=== PATIENT | female | born 1990 | race Caucasian/White ===

== ENCOUNTER 2019-12-25 20:00 | Emergency (ER) | payer OTHER ==
[~2019-12-25] VITALS: Ht 165.1 cm; Wt 93.9 kg
[2019-12-25 20:08] VITALS: BP 131/77
--- NOTE | 2019-12-25 20:32 | NUR ---
PT AMBULATED TO ER BED 5
[2019-12-25] MEDS ORDERED: DEXAMETHASONE 10 MG/ML VIAL IVP ONE (20:35)
[2019-12-25] MEDS ORDERED: NACL 0.9% 1,000 ML IV ONE (20:35)
[2019-12-25] MEDS ORDERED: KETOROLAC 15 MG/ML VIAL IVP ONE (20:35)
--- NOTE | 2019-12-25 20:35 | NUR ---
PT 29 Y/O FEMALE BIB SELF FOR C/O SORE THROAT X 3 DAYS W/ N/V. PAIN IN THROAT 03/13. PT STATES SHE HAS NOT BEEN ABLE TO EAT WEL X 3 DAYS AND HAS DIFFICULTY SWALLOWING D/T PAIN. ABD IS ROUND, SOFT, AND NON TENDER. VSS. RESPIRATIONS ARE EVEN AND UNLABROED. SKIN IS WARM AND DRY TO TOUCH. BED LOCKED AND IN LOWEST POSITION. MEDHX: ASTHMA ALLERGIES: PCN
--- NOTE | 2019-12-25 20:40 | NUR ---
PA [facility] BEDSIDE EVALUATING PT
[2019-12-25] MEDS ORDERED: CLINDAMYCIN 600 MG in DEXTROSE 5% 50 ML IV ONE (20:45)
--- NOTE | 2019-12-25 20:55 | NUR ---
PT IV PLACED IN L HAND 24G. IV SITE IS PATENT. NO REDNESS, SWELLING, OR C/O PAIN AT THIS TIME.
[2019-12-25] MEDS ORDERED: CLINDAMYCIN 600 MG/4 ML VIAL ONE (21:03)
--- NOTE | 2019-12-25 21:10 | NUR ---
UA COLLECTED. THROAT CULTURE SWAB COLLECTED AT BEDSIDE.
--- NOTE | 2019-12-25 21:36 | NUR ---
VIOLET CHAN AT BEDSIDE.
--- NOTE | 2019-12-25 22:10 | NUR ---
PT STATES SHE NO LONGER IS FEELING NAUSEA. RESPIRATIONS ARE EVEN AND UNALBORED. SKIN IS WARM AND DRY TO TOUCH. IV SITE IS PATENT. NO C/O PAIN, REDNESS, OR SWELLING NOTED.
[2019-12-25 22:50] VITALS: BP 120/60
--- NOTE | 2019-12-25 22:51 | NUR ---
IV removed, catheter intact and site benign. Applied folded 4x4 gauze and tape to stop bleeding.
--- NOTE | 2019-12-25 22:51 | NUR ---
Patient discharged with v/s stable. Written and verbal after care instructions given and explained. Patient alert, oriented and verbalized understanding of instructions. Ambulatory with steady gait. All questions addressed prior to discharge. ID band removed. Patient advised to follow up with PMD. Rx of cepacol, ibuprofen, clindamycin, zofran odt given. Patient educated on indication of medication including possible reaction and side effects. Opportunity to ask questions provided and answered.
== END 2019-12-25 22:51 | disposition home or self-care (01) ==
LOC: MED 20:00
DX: J02.9 Acute pharyngitis, unspecified (principal); E86.0 Dehydration; J45.909 Unspecified asthma, uncomplicated; Z88.0 Allergy status to penicillin
CPT/HCPCS: 81002; 81025; 87081; 96365; 96375; 99284; J1100; J1885; J3490; J7030

== ENCOUNTER 2019-12-31 17:30 | Emergency (ER) | payer OTHER ==
[~2019-12-31] VITALS: Ht 165.1 cm; Wt 94.8 kg
[2019-12-31 17:34] VITALS: BP 123/80
--- NOTE | 2019-12-31 17:40 | NUR ---
PT AMBULATED TO BED 12, STEADY GAIT.
--- NOTE | 2019-12-31 17:51 | NUR ---
29 Y/F PRESENTS TO ED WITH C/O EPIGASTRIC PAIN / "GURGLING" PAIN, WITH N/V/D FOR 3 DAYS S/P TAKING CLINDAMYCIN FOR 3 DAYS. PT STOPPED TAKING CLINDAMYCIN ON FRIDAY. PT REPORTS LOSS OF APPETITE, AND REPORTS SLIGHT RELIEF AFTER TAKING ZOFRAN AT HOME. PT WAS SEEN IN OUR ER ON 12/26/2019 AND DX WITH PHARYNGITIS. PT DENIES SORE THROAT, SOB, CP, COUGH, FEVER, RECENT TRAVEL, OR SICK CONTACTS. PT DENIES DYSURIA OR HEMATURIA. RR EVEN AND UNLABORED. VSS. PMH: DENIES MEDS: CONTROL, ZOFRAN AND ALLERGY PILLS
--- NOTE | 2019-12-31 18:00 | NUR ---
DUSTIN LAZO AT BEDSIDE.
[2019-12-31] MEDS ORDERED: DICYCLOMINE HCL LIQUID 20 MG, ALUMINUM HYD/MAG/SIMETHICONE 30 ML, LIDOCAINE VISCOUS 2% ... PO ONE ×3 (18:05)
[2019-12-31] MEDS ORDERED: ONDANSETRON 4 MG ODT PO ONE (18:05)
[2019-12-31] MEDS ORDERED: DICYCLOMINE HCL LIQUID 10 MG/5 ML UDC ONE (18:06)
[2019-12-31] MEDS ORDERED: LIDOCAINE VISCOUS 2% 20 ML UDC ONE (18:06)
[2019-12-31] MEDS ORDERED: ALUMINUM HYD/MAG/SIMETHICONE 30 ML UDC ONE (18:06)
[2019-12-31 19:03] VITALS: BP 123/80
--- NOTE | 2019-12-31 19:04 | NUR ---
Patient discharged with v/s stable. Written and verbal after care instructions given and explained. Patient alert, oriented and verbalized understanding of instructions. Ambulatory with steady gait. All questions addressed prior to discharge. ID band removed. Patient advised to follow up with PMD. Rx of MACROBID, BENTYL, ZOFRAN AND REGLAN given. Patient educated on indication of medication including possible reaction and side effects. Opportunity to ask questions provided and answered.
== END 2019-12-31 19:04 | disposition home or self-care (01) ==
LOC: MED 17:30
DX: R10.13 Epigastric pain (principal); N39.0 Urinary tract infection, site not specified; R11.2 Nausea with vomiting, unspecified; R19.7 Diarrhea, unspecified; J45.909 Unspecified asthma, uncomplicated; Z88.0 Allergy status to penicillin
CPT/HCPCS: 81002; 81025; 87086; 99283; Q0162

== ENCOUNTER 2020-01-16 09:48 | Emergency (ER) | payer OTHER ==
[~2020-01-16] VITALS: Ht 165.1 cm; Wt 93.4 kg
[2020-01-16 09:59] VITALS: BP 144/88
--- NOTE | 2020-01-16 10:00 | NUR ---
PT AMBULATED TO ER BED 11
--- NOTE | 2020-01-16 10:05 | NUR ---
29 Y/O FEMALE BIB SELF C/O SORE THROAT SINCE YESTERDAY MORNING. PT DENIES ANY FEVERS/CHILLS/COUGH. STATES SHE HAS HAS ON/OFF EPISODES OF TONSILLITIS/ STREP THROAT FOR THE PAST FEW MONTHS. SHE STATES IT IS VERY PAINFUL TO SWALLOW, WHICH IS PREVENTING HER FROM EATING/DRINKING. TONSILS ARE INFLAMED AND ERYTHEMATOUS. RESP EVEN AND UNLABORED. LUNG SOUNDS CLEAR IN BILAT LOBES. ALLERGIES: PENECILLIN, CLINDAMYCIN
[2020-01-16] MEDS ORDERED: KETOROLAC 30 MG/ML VIAL IM ONE (10:15)
[2020-01-16] MEDS ORDERED: DEXAMETHASONE 4 MG/ML VIAL PO ONE (10:15)
[2020-01-16] MEDS ORDERED: LIDOCAINE VISCOUS 2% 20 ML UDC PO ONE (10:15)
[2020-01-16] MEDS ORDERED: ONDANSETRON 4 MG ODT PO ONE (10:15)
[2020-01-16] MEDS ORDERED: DEXAMETHASONE 10 MG/ML VIAL ONE (10:22)
--- NOTE | 2020-01-16 10:30 | NUR ---
PT PROVIDED WITH WATER AT BEDSIDE FOR ORAL CHALLENGE
--- NOTE | 2020-01-16 10:50 | NUR ---
ORAL CHALLENGE TOLERATED WELL, NO N/V NOTED
[2020-01-16 10:59] VITALS: BP 144/88
--- NOTE | 2020-01-16 10:59 | NUR ---
Patient discharged with v/s stable. Written and verbal after care instructions given and explained. Patient alert, oriented and verbalized understanding of instructions. Ambulatory with steady gait. All questions addressed prior to discharge. ID band removed. Patient advised to follow up with PMD. Rx of AZITHROMYCIN, ZOFRAN, CEPACOL given. Patient educated on indication of medication including possible reaction and side effects. Opportunity to ask questions provided and answered.
== END 2020-01-16 10:59 | disposition home or self-care (01) ==
LOC: MED 09:48
DX: J03.90 Acute tonsillitis, unspecified (principal); R11.10 Vomiting, unspecified; Z88.0 Allergy status to penicillin; Z88.1 Allergy status to other antibiotic agents
CPT/HCPCS: 96372; 99284; J1100; J1885; Q0162

== ENCOUNTER 2020-05-03 09:27 | Emergency (ER) | payer OTHER ==
[~2020-05-03] VITALS: Ht 165.1 cm; Wt 95.3 kg
[2020-05-03 09:33] VITALS: BP 132/66
--- NOTE | 2020-05-03 09:36 | NUR ---
PATIENT AMBULATED TO ER BED1.
--- NOTE | 2020-05-03 09:40 | NUR ---
30 YEAR OLD FEMALE COMPLAINS OF SORE THROAT X YESTERDAY. PT STATES SHE HAS A REALLY HARD TIME SWALLOWING AND HAS NOT EATEN SINCE YESTERDAY. PT VOICE IS HOARSE, STATES THIS HAPPENS TO HER FREQUENTLY. PT AOX4, BREATHING EVEN AND UNLABORED, SKIN WARM AND DRY. BED IN LOWEST POSITION, LOCKED, BED RAIL UPX1. PMH - ASTHMA ALLERGIES - PCN, CLINDAMYCIN
[2020-05-03] MEDS ORDERED: KETOROLAC 30 MG/ML VIAL IVP STA ×2 (09:54→11:44)
[2020-05-03] MEDS ORDERED: NACL 0.9% 1,000 ML IV STA (09:54)
--- NOTE | 2020-05-03 10:21 | NUR ---
MULTIPLE ATTEMPTS TO PLACE IV MADE, ERMD MADE AWARE
[2020-05-03 10:25] LABS: BASOPHILS # (AUTO) 0.1 K/uL (0.00-0.22); BASOPHILS % (AUTO) 0.5 % (0.0-2.0); EOSINOPHILS # (AUTO) 0.3 K/uL (0-0.4); EOSINOPHILS % (AUTO) 2.1 % (0.0-4.0); HEMATOCRIT 40.5 % (36-48); HEMOGLOBIN 13.2 g/dL (12.0-16.0); LYMPHOCYTES # (AUTO) 1.7 K/uL (2.5-16.5); LYMPHOCYTES % (AUTO) 12.2 % (20.5-51.1); MEAN CORPUSCULAR HEMOGLOBIN 26 pg (27-31); MEAN CORPUSCULAR HGB CONC 33 g/dL (33-37); MEAN CORPUSCULAR VOLUME 80.7 fL (80-94); MONOCYTES # (AUTO) 0.5 K/uL (0.8-1.0); MONOCYTES % (AUTO) 3.7 % (1.7-9.3); NEUTROPHILS # (AUTO) 11.2 K/uL (1.8-7.7); NEUTROPHILS % (AUTO) 81.5 % (42.2-75.2); PLATELET COUNT (AUTO) 329 K/uL (140-450); RED BLOOD CELL COUNT(AUTO) 5.02 MIL/uL (4.20-5.40); RED CELL DISTRIBUTION WIDTH 12.6 % (11.6-13.7); WHITE BLOOD COUNT (AUTO) 13.8 K/uL (4.8-10.8)
--- NOTE | 2020-05-03 10:32 | NUR ---
COVID AND STREP SWAB SENT TO LAB
[2020-05-03 10:39] LABS: ALBUMIN 3.7 g/dL (3.4-5.0); ANION GAP 15.7 (8-16); CARBON DIOXIDE 24.9 mmol/L (21-32); CREATININE 0.6 mg/dL (0.6-1.3); POTASSIUM 3.6 mmol/L (3.5-5.1); TOTAL BILIRUBIN 0.4 mg/dL (0.0-1.0)
--- NOTE | 2020-05-03 10:43 | NUR ---
CONSENT FOR CT WITH CONTRAST SIGNED BY PATIENT
--- NOTE | 2020-05-03 11:02 | NUR ---
PT ALERT AND AWAKE, BREATHING EVEN AND UNLABORED. NO DISTRESS NOTED
--- NOTE | 2020-05-03 11:20 | NUR ---
ANOTHER NURSE ATTEMPTED IV ACCESS WITH NO SUCCESS, TERESA MADE AWARE
--- NOTE | 2020-05-03 11:32 | NUR ---
ERMD AT BEDSIDE
--- NOTE | 2020-05-03 13:01 | NUR ---
PT ALERT AND AWAKE, BREATHING EVEN AND UNLABORED. NO DISTRESS NOTED.
[2020-05-03 15:02] VITALS: BP 109/67
--- NOTE | 2020-05-03 15:03 | NUR ---
Patient discharged with v/s stable. Written and verbal after care instructions given and explained. Patient alert, oriented and verbalized understanding of instructions. Ambulatory with steady gait. All questions addressed prior to discharge. ID band removed. Patient advised to follow up with PMD. Rx of AZITHROMYCIN given. Patient educated on indication of medication including possible reaction and side effects. Opportunity to ask questions provided and answered.
== END 2020-05-03 15:03 | disposition home or self-care (01) ==
LOC: MED 09:27
DX: J03.90 Acute tonsillitis, unspecified (principal); J02.0 Streptococcal pharyngitis; Z88.1 Allergy status to other antibiotic agents; Z88.0 Allergy status to penicillin
CPT/HCPCS: 36415; 70491; 80053; 81025; 85025; 87081; 87426; 96361; 96374; 96376; 99285; J1885; J7030; Q9967

== ENCOUNTER 2020-08-27 06:32 | Emergency (ER) | payer OTHER ==
[~2020-08-27] VITALS: Ht 165.1 cm; Wt 90.7 kg
[2020-08-27 06:42] VITALS: BP 124/75
[2020-08-27] MEDS ORDERED: diphenhydrAMINE 50 MG/ML VIAL IVP ONE (07:15)
[2020-08-27] MEDS ORDERED: PROCHLORPERAZINE 10 MG/2 ML VIAL IVP ONE (07:15)
[2020-08-27] MEDS ORDERED: KETOROLAC 30 MG/ML VIAL IVP ONE (07:15)
[2020-08-27] MEDS ORDERED: NACL 0.9% 1,000 ML IV ONE (07:15)
[2020-08-27] MEDS ORDERED: KETOROLAC 30 MG/ML VIAL ONE (08:27)
[2020-08-27] MEDS ORDERED: diphenhydrAMINE 50 MG/ML VIAL ONE (08:28)
[2020-08-27] MEDS ORDERED: PROCHLORPERAZINE 10 MG/2 ML VIAL ONE (08:29)
[2020-08-27 09:22] VITALS: BP 122/71
== END 2020-08-27 09:26 | disposition home or self-care (01) ==
LOC: MED 06:32
DX: G43.909 Migraine, unspecified, not intractable, without status migrainosus (principal); J45.909 Unspecified asthma, uncomplicated; Z88.0 Allergy status to penicillin; Z88.1 Allergy status to other antibiotic agents
CPT/HCPCS: 81025; 96361; 96374; 96375; 99284; J0780; J1885; J1200

== ENCOUNTER 2021-02-23 23:02 | Emergency (ER) | payer OTHER ==
[~2021-02-23] VITALS: Ht 165.1 cm; Wt 104.3 kg
[2021-02-23 23:06] VITALS: BP 127/85
--- NOTE | 2021-02-23 23:09 | NUR ---
To ED bed 11. Addendum: 02/23/21 at 2310 by [facility] To ED bed 09
--- NOTE | 2021-02-23 23:14 | NUR ---
migraine headache 04/13 that started today due to pt occupation. pt visited urgent care earlier and was given tramadol which was not effective. hx: anemia allx: PCN, clindamycin
--- NOTE | 2021-02-23 23:41 | NUR ---
dr. arvizu at bedside examining patient
[2021-02-23] MEDS ORDERED: KETOROLAC 30 MG/ML VIAL IM ONE (23:50)
[2021-02-23] MEDS ORDERED: PROCHLORPERAZINE 10 MG/2 ML VIAL IM ONE (23:50)
[2021-02-24] MEDS ORDERED: ONDANSETRON 4 MG ODT PO ONE (00:35)
[2021-02-24] MEDS ORDERED: ONDANSETRON 4 MG ODT ONE (00:35)
[2021-02-24 00:49] VITALS: BP 127/85
--- NOTE | 2021-02-24 00:49 | NUR ---
Patient discharged with v/s stable. Written and verbal after care instructions given and explained. Patient verbalized understanding. Ambulatory with steady gait. All questions addressed prior to discharge. Advised to follow up with PMD.
== END 2021-02-24 00:49 | disposition home or self-care (01) ==
LOC: MED 23:02
DX: R51.9 Headache, unspecified (principal); J45.909 Unspecified asthma, uncomplicated; G43.909 Migraine, unspecified, not intractable, without status migrainosus; D64.9 Anemia, unspecified; Z88.0 Allergy status to penicillin; Z88.8 Allergy status to other drugs, medicaments and biological substances
CPT/HCPCS: 96372; 99284; J0780; J1885; Q0162

== ENCOUNTER 2021-09-11 14:48 | Emergency (ER) | payer OTHER ==
[~2021-09-11] VITALS: Ht 165.1 cm; Wt 108.0 kg
[2021-09-11 14:55] VITALS: BP 130/79
--- NOTE | 2021-09-11 15:10 | NUR ---
C/O RIGHT FLANK PAIN, URINARY BURNING, RIGHT EAR PAIN X YESTERDAY. LAST BM 3 DAYS AGO. PMH: ASTHMA
[2021-09-11] MEDS ORDERED: IBUP-2213 PO ×2 (15:20→15:29)
[2021-09-11] MEDS ORDERED: CIPR500T4 PO ×2 (15:20→15:29)
[2021-09-11] MEDS ORDERED: PHEN-1877 PO ×2 (15:20→15:29)
[2021-09-11 15:30] VITALS: BP 123/72
--- NOTE | 2021-09-11 15:30 | NUR ---
Patient discharged with v/s stable. Written and verbal after care instructions given and explained. Patient alert, oriented and verbalized understanding of instructions. Ambulatory with steady gait. All questions addressed prior to discharge. ID band removed. Patient advised to follow up with PMD. Rx of PYRIDIUM given. Patient educated on indication of medication including possible reaction and side effects. Opportunity to ask questions provided and answered.
== END 2021-09-11 15:30 | disposition home or self-care (01) ==
LOC: MED 14:48
DX: N39.0 Urinary tract infection, site not specified (principal); H92.01 Otalgia, right ear; J45.909 Unspecified asthma, uncomplicated; Z88.0 Allergy status to penicillin; Z88.1 Allergy status to other antibiotic agents
CPT/HCPCS: 81002; 81025; 99283

== ENCOUNTER 2021-10-06 05:46 | Emergency (ER) | payer OTHER ==
[~2021-10-06] VITALS: Ht 165.1 cm; Wt 108.9 kg
[~2021-10-06 05:46] MED LIST: CIPR500T4 PO; IBUP-2213 PO; PHEN-1877 PO
[2021-10-06 05:48] VITALS: BP 122/80
[2021-10-06] MEDS ORDERED: KETOROLAC 15 MG/ML VIAL IM ONE (06:20)
[2021-10-06] MEDS ORDERED: MAGNESIUM OXIDE 400 MG TAB PO ONE (06:20)
[2021-10-06] MEDS ORDERED: DEXAMETHASONE 10 MG/ML VIAL IM ONE (06:20)
[2021-10-06] MEDS ORDERED: PROCHLORPERAZINE 10 MG/2 ML VIAL IM ONE (06:20)
[2021-10-06] MEDS ORDERED: diphenhydrAMINE 50 MG/ML VIAL IM ONE (06:20)
--- NOTE | 2021-10-06 06:50 | NUR ---
IM MEDICATION GIVEN. BED LOCK AND LOW, SIDE RAILS UP. EDUCATION FOR FALL PRECAUTIONS GIVEN. CALL LIGHT WITHIN REACH.
--- NOTE | 2021-10-06 07:00 | NUR ---
DR. RIVAS AT BEDSIDE. ALL PT QUESTIONS ANSWERED. PT FELT SOME RELIEF FROM MEDS.
[2021-10-06 07:09] VITALS: BP 122/80
== END 2021-10-06 07:09 | disposition home or self-care (01) ==
LOC: MED 05:46
DX: R51.9 Headache, unspecified (principal); J45.909 Unspecified asthma, uncomplicated; Z79.899 Other long term (current) drug therapy; Z88.0 Allergy status to penicillin; Z88.1 Allergy status to other antibiotic agents
CPT/HCPCS: 96372; 99284; J0780; J1100; J1885; J1200

== ENCOUNTER 2024-01-26 11:06 | Emergency (ER) | payer OTHER ==
[~2024-01-26] VITALS: Ht 165.1 cm; Wt 113.4 kg
[2024-01-26 11:07] VITALS: BP 130/81; PULSE 137; RESP 18; TEMP 101.3; O2SAT 98
[2024-01-26] MEDS: DEXAMETHASONE 4 MG/ML VIAL PO ONE (11:52)
[2024-01-26] MEDS: ACETAMINOPHEN EXTRA STRENGTH 500 MG TAB PO ONE (11:54)
[2024-01-26] MEDS: KETOROLAC 30 MG/ML VIAL IM ONE (11:56)
[2024-01-26] MEDS ORDERED: IBUP-2213 PO (12:52)
[2024-01-26] MEDS ORDERED: NITR100C7 PO (12:52)
[2024-01-26 13:16] VITALS: BP 121/61; PULSE 115; RESP 18; TEMP 99.3; O2SAT 98
== END 2024-01-26 13:16 | disposition home or self-care (01) ==
LOC: MED 11:06
DX: J02.9 Acute pharyngitis, unspecified (principal); M79.10 Myalgia, unspecified site; R50.9 Fever, unspecified; R03.0 Elevated blood-pressure reading, without diagnosis of hypertension; J45.909 Unspecified asthma, uncomplicated; Z79.1 Long term (current) use of non-steroidal anti-inflammatories (NSAID); Z79.2 Long term (current) use of antibiotics; Z79.899 Other long term (current) drug therapy; Z88.0 Allergy status to penicillin; Z88.1 Allergy status to other antibiotic agents
CPT/HCPCS: 81002; 81025; 96372; 99283; J1100; J1885